=== PATIENT | male | born 1985 | race Caucasian/White ===

== ENCOUNTER 2019-02-07 13:10 | Emergency (ER) | payer OTHER, MEDICAID ==
[~2019-02-07] VITALS: Ht 167.6 cm; Wt 77.1 kg
[2019-02-07 13:26] VITALS: BP_SYST 127
[2019-02-07] MEDS ORDERED: ONDANSETRON HCL 4 MG/2 ML VIAL IVP ONE (13:45)
[2019-02-07] MEDS ORDERED: MAG HYDROX/AL HYDROX/SIMETH 30 ML, DICYCLOMINE HCL 20 MG, LIDOCAINE VISCOUS 2% 15ML (PO... PO ONE ×3 (13:45)
[2019-02-07] MEDS ORDERED: NACL 0.9% 1,000 ML IV ONE (13:45)
[2019-02-07 13:58] LABS: BASOPHILS % (AUTO) 0.4 % (0.0-2.0); EOSINOPHILS % (AUTO) 0.1 % (0.0-4.0); HEMATOCRIT 44.5 % (36-54); LYMPHOCYTES # (AUTO) 3.1 K/uL (1.0-5.5); MEAN CORPUSCULAR HEMOGLOBIN 31 pg (27-31); MEAN CORPUSCULAR HGB CONC 34 % (32-36); MEAN CORPUSCULAR VOLUME 92 fL (79.0-98.0); MONOCYTES % (AUTO) 7.8 % (1.7-9.3); NEUTROPHILS # (AUTO) 8.6 K/uL (1.8-7.7); NEUTROPHILS % (AUTO) 67.7 % (40.0-70.0); PLATELET COUNT (AUTO) 244 K/uL (130-430); RED BLOOD CELL COUNT(AUTO) 4.85 MIL/uL (4.2-6.2); WHITE BLOOD COUNT (AUTO) 12.7 K/uL (4.8-10.8)
[2019-02-07 14:14] LABS: CALCIUM 8.9 mg/dL (8.4-11.0); CREATININE 0.82 mg/dL (0.55-1.30)
[2019-02-07 14:19] LABS: ALBUMIN 3.7 g/dL (3.4-4.8); TOTAL BILIRUBIN 0.8 mg/dL (0.0-1.0)
[2019-02-07 14:22] LABS: POTASSIUM 2.9 mmol/L (3.5-5.1)
[2019-02-07] MEDS ORDERED: POTASSIUM CHLORIDE 20 MEQ/PKT PACKET PO ONE (14:45)
[2019-02-07 15:37] VITALS: BP_SYST 130
== END 2019-02-07 15:37 | disposition home or self-care (01) ==
LOC: SED 13:10
DX: K52.9 Noninfective gastroenteritis and colitis, unspecified (principal); E87.6 Hypokalemia
CPT/HCPCS: 36415; 80053; 83690; 85025; 96361; 96374; 99283; J2001; J2405; J7030

== ENCOUNTER 2019-03-11 06:10 | Emergency (ER) | payer OTHER, MEDICAID ==
[~2019-03-11] VITALS: Ht 170.2 cm; Wt 72.6 kg
--- NOTE | 2019-03-11 06:20 | NUR ---
Patient to ER bed 8 to gown for evaluation. Side rails up.
[2019-03-11 06:22] VITALS: BP_SYST 145
--- NOTE | 2019-03-11 06:23 | NUR ---
Pt BIB mother to ED C/O back pain for 2 days. Pt's mother states her son smokes marijuana too much. No other complaints and or injuries noted. VSS no s/s of acute distress. Resting on gurney rails up
--- NOTE | 2019-03-11 06:23 | NUR ---
Dr. Schwartz bedside for Pt eval
[2019-03-11 06:30] VITALS: BP_SYST 145
--- NOTE | 2019-03-11 06:30 | NUR ---
Patient given written and verbal discharge instructions and verbalizes understanding. ER MD discussed with patient the results and treatment provided. Patient in stable condition. ID arm band removed. Patient educated on pain management and to follow up with PMD. Pain Scale 0/10 Opportunity for questions provided and answered.
== END 2019-03-11 06:30 | disposition home or self-care (01) ==
LOC: SED 06:10
DX: S23.3XXA Sprain of ligaments of thoracic spine, initial encounter (principal); F41.9 Anxiety disorder, unspecified; X58.XXXA Exposure to other specified factors, initial encounter; Y93.89 Activity, other specified; Y92.89 Other specified places as the place of occurrence of the external cause; Y99.8 Other external cause status
CPT/HCPCS: 99281